=== PATIENT | female | born 1940 | race Caucasian/White ===

== ENCOUNTER → 2017-03-10 | Outpatient (CLI) | payer OTHER ==
[2017-03-10 16:26] LABS: FREE T4 (FREE THYROXINE) 0.87 ng/dL (0.76-1.46); T4 (THYROXINE) 7.2 ug/dL (4.7-13.3); TSH (3RD GENERATION) 1.576 uIU/mL (0.358-3.74)
--- NOTE | 2017-03-10 17:38 | CT ---
HISTORY: Abnormality of gait. Study: CT cervical and thoracic spine without contrast Comparison: None. Technique: Multiple axial images of the cervical and thoracic spine without administration of IV con trast. Sagittal and coronal reformats were performed and reviewed. Dose reduction techniques includ ing Automated Exposure Control (AEC) and adjustment of mA and kV were utilized. Findings: Anatomic alignment without fracture or listhesis. Mild multilevel degenerative changes of the cervic al and thoracic spine. No significant neural foraminal narrowing or spinal canal stenosis. The preve rtebral soft tissues are unremarkable. Pacing wires are seen within the heart. Biapical scarring. Th e visualized lungs are otherwise clear. IMPRESSION: 1. No acute cervical or thoracic pathology. 2. Chronic findings as above. Reported By:
--- NOTE | 2017-03-10 17:53 | CT ---
HISTORY: Abnormality of gait. Study: CT lumbar spine without contrast Comparison: None. Technique: Multiple axial images of the lumbar spine were obtained from the thoracolumbar junction to the sacrum without the administration of IV contrast. Sagittal and coronal reformats were perfor med and reviewed. Dose reduction techniques including Automated Exposure Control (AEC) and adjustme nt of mA and kV were utilized. Findings: Postsurgical changes at L4 through S1. Associated grade 1 anterior listhesis of L4 on L5 likely seco ndary to postsurgical and degenerative changes. Spinal canal stenosis of 8 mm and 7 mm are seen at t he L4-L5 and L5-S1 levels respectively. Moderate to severe multilevel facet arthrosis. The soft tiss ues are unremarkable. IMPRESSION: 1. No acute lumbar pathology. 2. Chronic findings at L4 through S1 with spinal canal stenosis to 7 mm. Reported By:
[2017-03-15 06:30] LABS: COPPER LEVEL 115 ug/dL (80-155)
== END ==
LOC: RAD 14:35
PROVIDERS: ATTEND Psychiatry & Neurology Neurology
DX: R26.89 Other abnormalities of gait and mobility (principal); R42 Dizziness and giddiness
CPT/HCPCS: 36415; 72125; 72128; 72131; 82525; 82607; 82746; 84436; 84439; 84443; 84446; 86336; 86592

== ENCOUNTER → 2017-03-17 | Outpatient (CLI) | payer OTHER | LOC: RT 11:03 | PROVIDERS: ATTEND Psychiatry & Neurology Neurology | DX: R42 Dizziness and giddiness (principal); R26.89 Other abnormalities of gait and mobility; G63 Polyneuropathy in diseases classified elsewhere | CPT/HCPCS: 95910 ==